=== PATIENT | male | born 2000 | race Caucasian/White ===

== ENCOUNTER 2024-08-08 07:14 | Day surgery (SDC) | payer OTHER, SELFPAY ==
[2024-08-08] VITALS (7 sets, daily range): BP systolic 98–123; BP diastolic 58–74; BMI 24.0
[2024-08-08] MEDS: TYLENOL 1000 MG PO (09:26)
[2024-08-08] MEDS: CELEBREX 200 MG PO (09:26)
[2024-08-08] MEDS: NORMOSOL-R/PLASMALYTE-A 1000 IV (09:27)
== END 2024-08-08 14:45 | disposition home or self-care (01) ==
LOC: SDS 07:14
PROVIDERS: ATTENDING PHYSICIAN Specialist
DX: S43.491A Other sprain of right shoulder joint, initial encounter (principal); X58.XXXA Exposure to other specified factors, initial encounter; M25.311 Other instability, right shoulder
CPT/HCPCS: 29806; C1713

== ENCOUNTER 2024-11-18 09:20 | Emergency (ER) | payer OTHER, SELFPAY ==
[2024-11-18 09:26] VITALS: BP 107/77
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
[2024-11-18 10:49] VITALS: BP 118/66
[2024-11-18 10:50] VITALS: BMI 25.0
[2024-11-18 11:00] VITALS: BP 124/64
[2024-11-18 12:00] VITALS: BP 94/80
== END 2024-11-18 12:46 | disposition home or self-care (01) ==
LOC: EMR 09:20
PROVIDERS: EMERGENCY PHYSICIAN Emergency Medicine; FAMILY PHYSICIAN Family Medicine
DX: R55 Syncope and collapse (principal); S46.911A Strain of unspecified muscle, fascia and tendon at shoulder and upper arm level, right arm, initial encounter; W10.9XXA Fall (on) (from) unspecified stairs and steps, initial encounter; F41.8 Other specified anxiety disorders; F43.10 Post-traumatic stress disorder, unspecified
CPT/HCPCS: 99283; 93005